=== PATIENT | male | born 1975 | race Caucasian/White ===

== ENCOUNTER 2019-03-28 11:45 | Emergency (ER) | payer BC, OTHER ==
[2019-03-28] MEDS ORDERED: Nitroglycerin 0.4 MG Tab.SL SL PRN (11:56)
[2019-03-28] MEDS ORDERED: Aspirin 81 MG Tab.Chew PO ONE (11:56)
[2019-03-28] MEDS ORDERED: Sodium Chloride 0.9% 10 ML Syringe FLUSH PRN (11:57)
--- NOTE | 2019-03-28 12:29 | CR ---
Clinical history: 43-year-old male chest pain. Interpretation: Upright AP portable chest film (external senior analyst market intelligence leads) unremarkable. Despite less than optimal inspiratory effort cardiac silhouette is normal size and configuration. Left-sided aortic arch. No cephalization of vascular flow, signs of alveolar edema or dependent pleural fluid accumulation. No bronchial inflammatory changes or air trapping. Ronnell thorax unremarkable. No pneumothorax. No lung mass or hilar lymphadenopathy. No focal lobar pneumonia, atelectasis or collapse. CONCLUSION: Negative exam.
[2019-03-28 12:45] LABS: ANION GAP 13.7; CHLORIDE,CL 105 mmol/L (101-111); SODIUM,NA 138 mmol/L (135-145)
[2019-03-28] MEDS ORDERED: Sodium Chloride 0.9% 500 ML IV SCH (13:00)
[2019-03-28] MEDS ORDERED: GI Cocktail Oral Solution 30 ML PO ONE (13:14)
--- NOTE | 2019-03-28 13:53 | EDM.PDOC ---
Scribed by Tsering Perez 03/28/19 [id number] for Brandon Roberts MD ED HPI GENERAL MEDICAL PROBLEM - General Chief Complaint: Chest Pain Stated Complaint: CHEST PAINS Time Seen by Provider: 03/28/19 11:55 Source of Information: Reports: Patient, RN, RN Notes Reviewed History Limitations: Reports: No Limitations - History of Present Illness INITIAL COMMENTS - FREE TEXT/NARRATIVE: Patient presents to ER with complaint of chest pain starting at 11:00 p.m. last night. It continued and became worse this morning so he came to the ER. Onset of the pain was just after eating last night. Pt admits to mild nausea. Denies fever, chills, cough, radiating pain, palpitations, shortness of breath, or edema. He rates the current pain 4/10. Pt describes the pain as sharp and burning at first, but now it is dull. Onset Date: 03/27/19 Duration: Getting Worse Location: Reports: Chest Quality: Reports: Ache Severity: Severe Improves with: Reports: None Worsens with: Reports: None Associated Symptoms: Reports: No Other Symptoms - Related Data Allergies Allergy/AdvReac Type Severity Reaction Status Date / Time amoxicillin [From Augmentin] Allergy Diarrhea Verified 03/28/19 13:47 clavulanic acid Allergy Diarrhea Verified 03/28/19 13:47 [From Augmentin] Home Meds: Home Meds . [Unable to Verify Home Med List] 07/08/16 [History] Past Medical History Cardiovascular History: Reports: High Cholesterol, Hypertension Endocrine/Metabolic History: Reports: Obesity/BMI 30+ Social & Family History - Family History Family Medical History: Noncontributory - Tobacco Use Smoking Status *Q: Former Smoker ED ROS GENERAL - Review of Systems Review Of Systems: ROS reveals no pertinent complaints other than HPI. ED EXAM, GENERAL - Physical Exam Exam: See Below Exam Limited By: No Limitations General Appearance: Alert, WD/WN, No Apparent Distress Eye Exam: Bilateral Eye: Normal Inspection Nose: Normal Inspection, Normal Mucosa, No Blood Throat/Mouth: Normal Inspection, Normal Lips, Normal Teeth, Normal Gums, Normal Oropharynx, Normal Voice, No Airway Compromise Head: Atraumatic, Normocephalic Neck: Normal Inspection, Supple, Non-Tender, Full Range of Motion. No: Lymphadenopathy (L), Lymphadenopathy (R) Respiratory/Chest: No Respiratory Distress, Lungs Clear, Normal Breath Sounds, No Accessory Muscle Use, Chest Non-Tender Cardiovascular: Normal Peripheral Pulses, Regular Rate, Rhythm, No Edema, No Gallop, No JVD, No Murmur, No Rub GI/Abdominal: Normal Bowel Sounds, Soft, No Distention, No Abnormal Bruit, Tender (mild epigastric tenderness). No: Guarding, Rigid, Rebound (Male) Exam: Deferred Rectal (Males) Exam: Deferred Back Exam: Normal Inspection, Full Range of Motion, NT Extremities: Normal Inspection, Normal Range of Motion, Non-Tender, Normal Capillary Refill, No Pedal Edema Neurological: Alert, Oriented, CN II-XII Intact, Normal Cognition, Normal Gait, No Motor/Sensory Deficits Psychiatric: Normal Mood, Flat Affect Skin Exam: Warm, Dry, Intact, Normal Color, No Rash EKG INTERPRETATION EKG Date: 03/28/19 Time: 11:53 Rhythm: Other (sinus rhythm) Rate (Beats/Min): 84 [place]: Normal P-Wave: Present QRS: Other (Small Q waves in inferior lateral leads.) ST-T: Other (Borderline T abnormalities, diffuse leads.) QT: Normal Comparison: NA - No Prior EKG Course - Orders/Labs/Meds Orders: Active Orders 24 hr Category Date Time Status EKG 12 Lead [EKG Documentation Completion] [] STAT Care 03/28/19 11:57 Active Peripheral IV Care [RC] . DIRECTED Care 03/28/19 11:57 Active Nitroglycerin [Nitrostat] Med 03/28/19 11:56 Active 0.4 mg SL Q5M PRN Sodium Chloride 0.9% [Normal Saline] 500 ml Med 03/28/19 13:00 Active IV .BOLUS Sodium Chloride 0.9% [Saline Flush] Med 03/28/19 11:57 Active 10 ml FLUSH ASDIRECTED PRN Peripheral IV Insertion Adult [OM.PC] Stat Oth 03/28/19 11:57 Ordered Medication Orders Sodium Chloride (Normal Saline) 500 mls @ 999 mls/hr IV .BOLUS REVA Nitroglycerin (Nitrostat) 0.4 mg SL Q5M PRN PRN Reason: Chest Pain Sodium Chloride (Saline Flush) 10 ml FLUSH ASDIRECTED PRN PRN Reason: Keep Vein Open Labs: Laboratory Tests 0503/28/19 03/28/19 Range/Units 11:59 11:59 11:59 WBC 13.3 H (5.0-10.0) 10^3/uL RBC 5.52 (4.6-6.2) 10^6/uL Hgb 16.1 D (14.0-18.0) g/dL Hct 46.4 (40.0-54.0) % MCV 84.1 (80-100) fL MCH 29.2 (27.0-34.0) pg MCHC 34.7 (33.0-35.0) g/dL Plt Count 192 (150-450) 10^3/uL Neut % (Auto) 77.6 H (42.2-75.2) % Lymph % (Auto) 13.8 L (20.5-50.1) % Schley % (Auto) 7.1 (2-8) % Eos % (Auto) 1.1 (1.0-3.0) % Baso % (Auto) 0.4 (0.0-1.0) % D-Dimer, Quantitative < 100 (0-400) ng/mL Sodium 138 (135-145) mmol/L Potassium 3.7 (3.6-5.0) mmol/L Chloride 105 (101-111) mmol/L Carbon Dioxide 23.0 (21.0-31.0) mmol/L Anion Gap 13.7 BUN 15 (7-18) mg/dL Creatinine 0.9 (0.6-1.3) mg/dL Est Cr Clr Drug Dosing TNP Estimated GFR (MDRD) > 60 BUN/Creatinine Ratio 16.66 Glucose 132 H (74-105) mg/dL Calcium 9.4 (8.4-10.2) mg/dl Total Bilirubin 1.0 (0.2-1.0) mg/dL AST 34 (10-42) IU/L ALT 58 (10-60) IU/L Alkaline Phosphatase 46 (42-121) IU/L Troponin I < 0.02 (0.00-0.02) ng/ml Total Protein 7.9 (6.7-8.2) g/dl Albumin 4.7 (3.2-5.5) g/dl Globulin 3.2 Albumin/Globulin Ratio 1.47 Amylase 95 (28-100) U/L Lipase 62 H (22-51) U/L Meds: Medications Generic Name Dose Route Start Last Admin Trade Name Freq PRN Reason Stop Dose Admin Sodium Chloride 500 mls @ 999 mls/hr 03/28/19 13:00 Normal Saline IV .BOLUS REVA Nitroglycerin 0.4 mg 03/28/19 11:56 Nitrostat SL Q5M PRN Chest Pain Sodium Chloride 10 ml 03/28/19 11:57 Saline Flush FLUSH ASDIRECTED PRN Keep Vein Open Discontinued Medications Generic Name Dose Route Start Last Admin Trade Name Freq PRN Reason Stop Dose Admin Al Hydroxide/Mg Hydroxide 30 ml 03/28/19 13:14 03/28/19 13:24 Gi Cocktail PO 03/28/19 13:15 30 ml ONETIME ONE Administration Aspirin 324 mg 03/28/19 11:56 Aspirin PO 03/28/19 11:57 ONETIME ONE - Radiology Interpretation Free Text/Narrative:: Chest x-ray normal: See rad report. Departure - Departure Time of Disposition: 13:51 Disposition: Home, Self-Care 01 Condition: Good Clinical Impression: Atypical chest pain, Esophagitis Instructions: Esophagitis, Nonspecific Chest Pain Forms: ED Department Discharge Additional Instructions: Rx: Omeprazole 40mg Avoid greasy/fried, or spicy, foods, mint, chocolate, caffeine, and alcohol. Follow up in clinic next week with your doctor for recheck. Also ask your doctor about checking for sleep apnea. - My Orders Last 24 Hours: My Active Orders 03/28/19 11:56 Nitroglycerin [Nitrostat] 0.4 mg SL Q5M PRN 03/28/19 11:57 EKG 12 Lead [EKG Documentation Completion] [RC] STAT Peripheral IV Care [RC] . DIRECTED Sodium Chloride 0.9% [Saline Flush] 10 ml FLUSH ASDIRECTED PRN Peripheral IV Insertion Adult [OM.PC] Stat 03/28/19 13:00 Sodium Chloride 0.9% [Normal Saline] 500 ml IV .BOLUS - Assessment/Plan Last 24 Hours: My Active Orders 03/28/19 11:56 Nitroglycerin [Nitrostat] 0.4 mg SL Q5M PRN 03/28/19 11:57 EKG 12 Lead [EKG Documentation Completion] [RC] STAT Peripheral IV Care [RC] . DIRECTED Sodium Chloride 0.9% [Saline Flush] 10 ml FLUSH ASDIRECTED PRN Peripheral IV Insertion Adult [OM.PC] Stat 03/28/19 13:00 Sodium Chloride 0.9% [Normal Saline] 500 ml IV .BOLUS I have read and agree with the documentation that has been completed regarding this visit. By signing this record, I attest that the documentation was completed in my physical presence and is an accurate record of the encounter.
[2019-03-28 14:07] VITALS: BP 140/90
== END 2019-03-28 14:05 | disposition home or self-care (01) ==
LOC: DL.ED 11:45
DX: K20.9 Esophagitis, unspecified (principal); R07.89 Other chest pain; E78.00 Pure hypercholesterolemia, unspecified; I10 Essential (primary) hypertension; Z88.1 Allergy status to other antibiotic agents; Z88.8 Allergy status to other drugs, medicaments and biological substances; Z87.891 Personal history of nicotine dependence
CPT/HCPCS: 36415; 71045; 80053; 82150; 83690; 84484; 85025; 85379; 99285; A9270; J7040

== ENCOUNTER 2020-10-16 11:18 | Emergency (ER) | payer OTHER ==
[2020-10-16 11:25] VITALS: BP 166/98; PULSE 89
--- NOTE | 2020-10-16 11:53 | EDM.PDOC ---
ED HPI GENERAL MEDICAL PROBLEM - General Chief Complaint: Genitourinary Problem Stated Complaint: PERSONAL Time Seen by Provider: 10/16/20 11:40 Source of Information: Reports: Patient, RN, RN Notes Reviewed History Limitations: Reports: No Limitations - History of Present Illness INITIAL COMMENTS - FREE TEXT/NARRATIVE: Patient presents to ER with complaint of lesions on his penis that he noticed a few days ago. Patient states he has never had an STD in the past. States he did have unprotected sex, unaware of any STIs that his partner may have had. Patient denies any penile discharge. Denies any fever or chills. States he has had some upset stomach and diarrhea, but states this may be from being upset about the STI. Onset: Gradual Penis Pain Score (Numeric/FACES): 2 - Related Data Allergies Allergy/AdvReac Type Severity Reaction Status Date / Time amoxicillin [From Augmentin] Allergy Diarrhea Verified 10/16/20 11:25 clavulanic acid Allergy Diarrhea Verified 10/16/20 11:25 [From Augmentin] Home Meds: Home Meds Fenofibrate 160 mg PO DAILY 03/28/19 [History] Lisinopril 5 mg PO DAILY 03/28/19 [History] Metoprolol Succinate [Toprol XL 50mg] 50 mg PO DAILY 03/28/19 [History] amLODIPine Besylate [Amlodipine Besylate] 10 mg PO DAILY 03/28/19 [History] Past Medical History HEENT History: Reports: None Cardiovascular History: Reports: High Cholesterol, Hypertension Respiratory History: Reports: None Gastrointestinal History: Reports: GERD Genitourinary History: Reports: None Musculoskeletal History: Reports: None Neurological History: Reports: None Psychiatric History: Reports: None Endocrine/Metabolic History: Reports: Obesity/BMI 30+ Hematologic History: Reports: None Immunologic History: Reports: None Oncologic (Cancer) History: Reports: None Dermatologic History: Reports: None Social & Family History - Family History Family Medical History: No Pertinent Family History - Tobacco Use Tobacco Use Status *Q: Never Tobacco User Second Hand Smoke Exposure: No - Caffeine Use Caffeine Use Comment: states he drinks caffiene but would not answer to what specifically he drinks - Recreational Drug Use Recreational Drug Use: No ED ROS GENERAL - Review of Systems Review Of Systems: Comprehensive ROS is negative, except as noted in HPI. ED EXAM, RENAL/ - Physical Exam Exam: See Below Exam Limited By: No Limitations General Appearance: Alert, WD/WN, No Apparent Distress Eye Exam: Bilateral Eye: EOMI, Normal Inspection Ears: Normal External Exam, Hearing Grossly Normal Nose: Normal Inspection Throat/Mouth: Normal Inspection, Normal Voice, No Airway Compromise Head: Atraumatic, Normocephalic Neck: Normal Inspection, Supple, Non-Tender, Full Range of Motion Respiratory/Chest: No Respiratory Distress, Lungs Clear, Normal Breath Sounds, No Accessory Muscle Use, Chest Non-Tender Cardiovascular: Normal Peripheral Pulses, Regular Rate, Rhythm, No Edema, No Gallop, No JVD, No Murmur, No Rub GI/Abdominal: Normal Bowel Sounds, Soft, Non-Tender, No Organomegaly, No Distention, No Abnormal Bruit, No Mass (Male) Exam: No Hernia, Circumcised, Penile Lesions (vesicles, herpes appearing rash) Rectal (Males) Exam: Deferred Back Exam: Normal Inspection, Full Range of Motion, NT Extremities: Normal Inspection, Normal Range of Motion, Non-Tender, Normal Capillary Refill, No Pedal Edema Neurological: Alert, Oriented, CN II-XII Intact, Normal Cognition, Normal Gait, Normal Reflexes, No Motor/Sensory Deficits Psychiatric: Normal Affect, Normal Mood Skin Exam: Warm, Dry, Intact, Normal Color, No Rash Lymphatic: No Adenopathy Course - Vital Signs Last Recorded V/S: Last Vital Signs Temp 98.5 F 10/16/20 11:21 Pulse 89 10/16/20 11:21 Resp 18 10/16/20 11:21 BP 166/98 H 10/16/20 11:21 Pulse Ox 98 10/16/20 11:21 - Orders/Labs/Meds Orders: Active Orders 24 hr Category Date Time Status CHLAMYDIA AND GONORRHEA BY TMA Stat Lab 10/16/20 11:43 Received CULTURE URINE [RM] Stat Lab 10/16/20 11:43 Received RPR (SYPHILIS SERO) W/ RFLX [REF] Stat Lab 10/16/20 11:53 Ordered UA W/MICROSCOPIC [URIN] Stat Lab 10/16/20 11:43 Results Labs: Laboratory Tests 10/16/20 Range/Units 11:43 Urine Color Dark yellow (YELLOW) Urine Appearance Slightly cloudy (CLEAR) Urine pH 6.5 (5.0-9.0) Ur Specific [place] 1.020 (1.005-1.030) Urine Protein Trace H (NEGATIVE) Urine Glucose (UA) Negative (NEGATIVE) Urine Ketones Negative (NEGATIVE) Urine Occult Blood Negative (NEGATIVE) Urine Nitrite Negative (NEGATIVE) Urine Bilirubin Negative (NEGATIVE) Urine Urobilinogen >=8.0 H (0.2-1.0) mg/dL Ur Leukocyte Esterase Trace H (NEGATIVE) Departure - Departure Time of Disposition: 11:58 Disposition: Home, Self-Care 01 Condition: Good Clinical Impression: Herpes genitalia Qualifiers: Herpes simplex infection site: penis Qualified Code(s): A60.01 - Herpesviral infection of penis - Discharge Information *PRESCRIPTION DRUG MONITORING PROGRAM REVIEWED*: No *COPY OF PRESCRIPTION DRUG MONITORING REPORT IN PATIENT BRANNON: No Instructions: Sexually Transmitted Disease, [id number], Genital Herpes Forms: ED Department Discharge Additional Instructions: Rx: Valacyclovir Follow-up with your primary care provider You may have flareups, you will need to be seen in the clinic and prescribed more antiviral medication Always wear protection Sepsis Event Note (ED) - Evaluation Sepsis Screening Result: No Definite Risk - Focused Exam Vital Signs: Vital Signs Temp Pulse Resp BP Pulse Ox 10/16/20 11:21 98.5 F 89 18 166/98 H 98 - My Orders Last 24 Hours: My Active Orders 10/16/20 11:53 RPR (SYPHILIS SERO) W/ RFLX [REF] Stat - Assessment/Plan Last 24 Hours: My Active Orders 10/16/20 11:53 RPR (SYPHILIS SERO) W/ RFLX [REF] Stat
[2020-10-18 12:42] LABS: C.TRACHOMATIS BY TMA Negative (Negative); N.GONORRHOEAE BY TMA Negative (Negative)
== END 2020-10-16 12:05 | disposition home or self-care (01) ==
LOC: DL.ED 11:18
DX: A60.01 Herpesviral infection of penis (principal); I10 Essential (primary) hypertension; E66.9 Obesity, unspecified; Z68.32 Body mass index [BMI] 32.0-32.9, adult; Z88.1 Allergy status to other antibiotic agents; Z79.899 Other long term (current) drug therapy
CPT/HCPCS: 36415; 81001; 86592; 87086; 87491; 87591; 99283